=== PATIENT | male | born 1955 | race Two or more races ===

== ENCOUNTER 2024-05-02 19:25 | Emergency (ER) | payer OTHER ==
[~2024-05-02] VITALS: Ht 177.8 cm; Wt 81.6 kg
[2024-05-02] MEDS: IV NS 0.9% 1,000 ML BAG IV ONE (19:49)
[2024-05-02 20:29] LABS: BASOPHILS # (AUTO) 0.1 K/uL (0.0-0.2); BASOPHILS % (AUTO) 0.9 % (0.0-2.0); EOSINOPHILS # (AUTO) 0.2 K/uL (0.0-0.7); EOSINOPHILS % (AUTO) 2.9 % (0.0-6.0); HEMATOCRIT 38 % (39-51); HEMOGLOBIN 12.6 g/dL (13.5-17.5); LYMPHOCYTES # (AUTO) 1.8 K/uL (0.8-4.8); MEAN CORPUSCULAR HEMOGLOBIN 30 PG (26.0-33.0); MEAN CORPUSCULAR HGB CONC 33 g/dl (31.0-36.0); MEAN CORPUSCULAR VOLUME 92 fL (80-96); MONOCYTES # (AUTO) 0.5 K/uL (0.1-1.30); MONOCYTES % (AUTO) 6.6 % (2.0-12.0); NEUTROPHILS # (AUTO) 4.5 K/uL (1.8-8.9); NEUTROPHILS % (AUTO) 64.6 % (43.0-81.0); PLATELET COUNT (AUTO) 265 K/uL (150-450); RED BLOOD CELL COUNT(AUTO) 4.16 MIL/uL (4.5-6.0); RED CELL DISTRIBUTION WIDTH 13.4 % (11.5-15.0)
[2024-05-02 20:41] LABS: INR 1.03 (0.91-1.10); PROTHROMBIN TIME 10.9 SECS (9.2-11.1)
[2024-05-02 20:54] LABS: LACTIC ACID 2.4 mmol/L (0.4-2.0)
[2024-05-02 20:55] LABS: CALCIUM, SERUM 8.9 mg/dL (8.5-10.1); CARBON DIOXIDE 23 mmol/L (21-32); CHLORIDE 105 mmol/L (98-107); CREATININE 0.9 mg/dL (0.6-1.3); GLUCOSE 102 mg/dL (74-106); POTASSIUM 3.5 mmol/L (3.5-5.1); SODIUM SERUM 139 mmol/L (136-145); UREA NITROGEN, BLOOD 27 mg/dL (7-18)
[2024-05-02 20:56] LABS: MAGNESIUM 2.2 mg/dL (1.8-2.4)
[2024-05-02 21:02] LABS: ALANINE AMINOTRANSFERASE 36 U/L (12-78); ALBUMIN 2.9 g/dL (3.4-5.0); ALKALINE PHOSPHATASE 65 U/L (46-116); ASPARTATE AMINOTRANSFERASE 16 U/L (15-37); BILIRUBIN,DIRECT 0.1 mg/dL (0.0-0.2); BILIRUBIN,TOTAL 0.3 mg/dL (0.2-1.0); TOTAL PROTEIN, SERUM 6.5 g/dL (6.4-8.2)
[2024-05-02 21:23] VITALS: BP 130/80; TEMP 98; O2SAT 98
[2024-05-02 21:51] LABS: APPEARANCE,URINE CLEAR (CLEAR); BILIRUBIN,URINE NEGATIVE (NEGATIVE); BLOOD, URINE NEGATIVE Ery/uL (NEGATIVE); COLOR,URINE YELLOW (YELLOW); KETONES,URINE TRACE mg/dL (NEGATIVE); LEUKOCYTE ESTERASE ,URINE NEGATIVE (NEGATIVE); NITRITE, URINE NEGATIVE (NEGATIVE); PROTEIN,URINE TRACE mg/dl (NEGATIVE); UGLUCOSE NEGATIVE (NEGATIVE); UROBILINOGEN,URINE 0.2 EU/dL (0.2)
[2024-05-02 22:23] LABS: RBC,URINE NONE SEEN /HPF (0-2); WBC,URINE NONE SEEN /HPF (0-3)
[2024-05-02 22:24] LABS: ADD URINE CULTURE NO; BACTERIA,URINE None seen /HPF (None Seen); MUCUS,URINE Moderate /LPF (None Seen); SQUAMOUS EPITHELIAL CELL,UR None Seen /HPF (None Seen)
== END 2024-05-02 21:24 | disposition home or self-care (01) ==
LOC: ER 19:28
DX: R55 Syncope and collapse (principal); I48.91 Unspecified atrial fibrillation; Z98.890 Other specified postprocedural states
CPT/HCPCS: 99284; 96360; 93005; 85025; 80048; 83605; 80076; 83735; 81001; 36415; 84484; 85730; 83880; J7030

== ENCOUNTER 2024-08-10 09:13 | Emergency (ER) | payer OTHER ==
[~2024-08-10] VITALS: Ht 177.8 cm; Wt 83.9 kg
[2024-08-10 09:15] VITALS: TEMP 98.4
[2024-08-10] MEDS ORDERED: KETOROLAC TROMETHAMINE 15 MG/ML VIAL ONE (10:04)
[2024-08-10] MEDS: IV NS 0.9% 1,000 ML BAG IV ONE (10:05)
[2024-08-10] MEDS: KETOROLAC TROMETHAMINE 15 MG/ML VIAL IV ONE (10:06)
[2024-08-10 10:08] LABS: BASOPHILS % (AUTO) 0.4 % (0.0-2.0); EOSINOPHILS # (AUTO) 0.1 K/uL (0.0-0.7); EOSINOPHILS % (AUTO) 1.9 % (0.0-6.0); HEMATOCRIT 40 % (39-51); HEMOGLOBIN 13.5 g/dL (13.5-17.5); LYMPHOCYTES # (AUTO) 0.8 K/uL (0.8-4.8); LYMPHOCYTES % (AUTO) 10.4 % (20.0-44.0); MEAN CORPUSCULAR HEMOGLOBIN 31 PG (26.0-33.0); MEAN CORPUSCULAR HGB CONC 33 g/dl (31.0-36.0); MEAN CORPUSCULAR VOLUME 93 fL (80-96); MONOCYTES # (AUTO) 0.4 K/uL (0.1-1.30); MONOCYTES % (AUTO) 5.4 % (2.0-12.0); NEUTROPHILS # (AUTO) 6.4 K/uL (1.8-8.9); NEUTROPHILS % (AUTO) 81.9 % (43.0-81.0); PLATELET COUNT (AUTO) 254 K/uL (150-450); RED BLOOD CELL COUNT(AUTO) 4.33 MIL/uL (4.5-6.0); WHITE BLOOD COUNT (AUTO) 7.8 K/uL (4.3-11.0)
[2024-08-10 10:36] LABS: CALCIUM, SERUM 9.1 mg/dL (8.5-10.1); CREATININE 0.8 mg/dL (0.6-1.3)
[2024-08-10 10:45] LABS: POTASSIUM 4.1 mmol/L (3.5-5.1)
[2024-08-10] MEDS ORDERED: NAPR-1164 PO (11:53)
[2024-08-10 12:39] VITALS: BP 132/75; O2SAT 99
== END 2024-08-10 12:39 | disposition home or self-care (01) ==
LOC: ER 09:15
DX: M43.6 Torticollis (principal); R55 Syncope and collapse; I48.91 Unspecified atrial fibrillation; Z79.899 Other long term (current) drug therapy
CPT/HCPCS: 99285; 96374; 96361; 93005; 72040; 85025; 80048; 36415; J7030; J1885

== ENCOUNTER 2025-04-25 11:28 | Emergency (ER) | payer OTHER ==
[~2025-04-25] VITALS: Ht 177.8 cm; Wt 83.9 kg
[~2025-04-25 11:28] MED LIST: NAPR-1164 PO
[2025-04-25 12:27] LABS: PLATELET COUNT (AUTO) 229 K/uL (150-450); RED BLOOD CELL COUNT(AUTO) 4.54 MIL/uL (4.5-6.0); RED CELL DISTRIBUTION WIDTH 13.0 % (11.5-15.0); WHITE BLOOD COUNT (AUTO) 5.8 K/uL (4.3-11.0)
[2025-04-25 12:32] LABS: CALCIUM, SERUM 8.7 mg/dL (8.5-10.1); CREATININE 0.8 mg/dL (0.6-1.3); SODIUM SERUM 140.0 mmol/L (136-145); UREA NITROGEN, BLOOD 20.0 mg/dL (7-18)
[2025-04-25 12:39] LABS: ASPARTATE AMINOTRANSFERASE 20.0 U/L (15-37); TOTAL PROTEIN, SERUM 7.0 g/dL (6.4-8.2)
[2025-04-25] MEDS ORDERED: IV NS 0.9% 250 ML IV ONE (12:56)
[2025-04-25] MEDS ORDERED: IOHEXOL-300 100 ML VIAL IV ONE (12:56)
[2025-04-25 13:01] LABS: APPEARANCE,URINE SLIGHTLY CLOUDY (CLEAR); BLOOD, URINE TRACE-INTA Ery/uL (NEGATIVE); LEUKOCYTE ESTERASE ,URINE TRACE (NEGATIVE); NITRITE, URINE NEGATIVE (NEGATIVE); UGLUCOSE NEGATIVE (NEGATIVE)
[2025-04-25 13:31] LABS: ADD URINE CULTURE YES; SQUAMOUS EPITHELIAL CELL,UR 0-2 /HPF (None Seen)
[2025-04-25 13:32] LABS: URINE AMORPHOUS URATE Moderate /HPF (None Seen)
[2025-04-25] MEDS ORDERED: IBUP-1490 PO (14:21)
[2025-04-25] MEDS ORDERED: CEPH500C2 PO (14:21)
[2025-04-25 14:30] VITALS: BP 102/78; TEMP 98.3; O2SAT 98
== END 2025-04-25 14:55 | disposition home or self-care (01) ==
LOC: ER 11:30
DX: N39.0 Urinary tract infection, site not specified (principal); E78.5 Hyperlipidemia, unspecified; I48.91 Unspecified atrial fibrillation; Z85.46 Personal history of malignant neoplasm of prostate; Z98.890 Other specified postprocedural states
CPT/HCPCS: 99285; 74177; 85025; 80048; 87086; 83690; 80076; 81001; 36415; J7050; Q9967